=== PATIENT | female | born 1985 | race American Indian/Alaskan Native ===

== ENCOUNTER 2016-07-16 10:13 | Outpatient (CLI) | payer BC ==
--- NOTE | 2016-07-16 12:07 | Mammography Report ---
Bilateral digital diagnostic mammogram and bilateral whole breast ultrasound including all 4 quadrants and subareolar regions. History: Bilateral breast lumps. Baseline study. Findings: The mammogram demonstrates heterogeneously dense fiber glandular tissue with no focal abnormalities. No suspicious microcalcifications are seen. Ultrasound the right breast demonstrates an ovoid shaped hypoechoic mass in the right breast at 8:00 position in the subareolar region. This measures 1.6 x 1.3 x 0.3 cm. The margins are sharply circumscribed and there is no acoustic shadowing. No additional findings are seen in the right breast. In the left breast, there are 2 small cysts, the larger of the 2 is seen at the 10:30 position measuring 1.3 x 0.7 cm. A 5 mm cyst is seen at the 3:00 position 4 cm from the nipple. No additional focal abnormalities are seen. Impression: 1. Subareolar benign appearing right breast mass, probably representing a fibroadenoma. 2. 2 simple cysts are seen in the left breast. BI-RADS code: 3. Recommendation: 6 month followup targeted right breast ultrasound to confirm stability.
== END 2016-07-16 10:14 | disposition home or self-care (01) ==
LOC: SPVWC 10:13
PROVIDERS: ATTEND Internal Medicine
DX: N60.02 Solitary cyst of left breast (principal); N63 Unspecified lump in breast; N64.4 Mastodynia
CPT/HCPCS: 76641; G0204; 77066